=== PATIENT | male | born 1985 | race Two or more races ===

== ENCOUNTER 2023-10-20 22:18 | Emergency (ER) | payer OTHER ==
[~2023-10-20] VITALS: Ht 177.8 cm; Wt 90.7 kg
[2023-10-20 23:18] LABS: HEMOGLOBIN 16.3 g/dL (13-16.00); MEAN CELL VOLUME 86.4 fL (80.0-100.00); MEAN CORPUSCULAR HEMOGLOBIN 30.6 pg (27.00-32.0); MEAN CORPUSCULAR HGB CONC 35.4 g/dl (32.0-36.0); PLATELET COUNT 246 K/uL (150-450); RED BLOOD COUNT 5.32 M/uL (4.00-6.00); RED CELL DISTRIBUTION WIDTH 14.1 % (11.5-14.5)
[2023-10-20 23:35] LABS: CALCIUM 7.9 mg/dL (8.5-10.1); CREATININE SERUM 0.88 mg/dL (0.70-1.30); GFR 96.92
[2023-10-21 00:14] LABS: POTASSIUM 2.85 mEq/L (3.5-5.1)
[2023-10-21 00:23] LABS: PH,URINE 6.5 (5.0-8.0); URINE APPEARANCE Cloudy; URINE BILIRRUBIN Small (NEGATIVE); URINE BLOOD Negative; URINE COLOR Dark Yellow; URINE GLUCOSE Negative (NEGATIVE); URINE LEUKOCYTE Trace; URINE NITRATE Negative; URINE PROTEIN 30 (NEGATIVE)
[2023-10-21 00:27] LABS: URINE EPITHELIAL CELLS 18.2 uL (0.0-38.8); URINE RBC 5.4 uL (0.0-20.8); URINE WBC 5.8 uL (0.0-23.2)
[2023-10-21 00:34] LABS: URINE CRYSTALS MANY /HPF
[2023-10-21] MEDS ORDERED: INTESTINEX680 M1 PO (03:44)
[2023-10-21] MEDS ORDERED: POTASSIUM600 MG PO (03:44)
== END 2023-10-21 03:51 | disposition left against medical advice (07) ==
LOC: ER 22:19
PROVIDERS: Emergency Medicine
DX: E87.6 Hypokalemia (principal); R19.7 Diarrhea, unspecified; Z91.013 Allergy to seafood
CPT/HCPCS: 36415; 96365; 99283; J2405; J3490